=== PATIENT | female | born 1935 | race Caucasian/White ===

== ENCOUNTER 2020-11-03 11:49 | Emergency (ER) | payer MEDICARE ==
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
[2020-11-03] MEDS ORDERED: Acetaminophen 500 MG TAB ONE (13:07)
== END 2020-11-03 13:19 | disposition home or self-care (01) ==
LOC: MADERS 11:49
DX: S80.01XA Contusion of right knee, initial encounter (principal); E03.9 Hypothyroidism, unspecified; K21.9 Gastro-esophageal reflux disease without esophagitis; I10 Essential (primary) hypertension; Z79.899 Other long term (current) drug therapy; V89.2XXA Person injured in unspecified motor-vehicle accident, traffic, initial encounter
CPT/HCPCS: 70450; 72125